=== PATIENT | female | born 1990 | race Two or more races ===

== ENCOUNTER 2025-08-08 03:47 | Emergency (ER) | payer BC ==
[~2025-08-08] VITALS: Ht 167.6 cm; Wt 88.5 kg
[2025-08-08 04:55] LABS: PLATELET COUNT (AUTO) 303 K/uL (150-450); RED BLOOD CELL COUNT(AUTO) 4.58 MIL/uL (4.0-5.2); RED CELL DISTRIBUTION WIDTH 14.3 % (11.5-15.0); WHITE BLOOD COUNT (AUTO) 9.4 K/uL (4.3-11.0)
[2025-08-08 05:00] LABS: APPEARANCE,URINE CLEAR (CLEAR); BLOOD, URINE 3+ Ery/uL (NEGATIVE); LEUKOCYTE ESTERASE ,URINE NEGATIVE (NEGATIVE); NITRITE, URINE NEGATIVE (NEGATIVE); UGLUCOSE NEGATIVE (NEGATIVE)
[2025-08-08 05:01] LABS: CALCIUM, SERUM 8.8 mg/dL (8.5-10.1); CREATININE 1.0 mg/dL (0.6-1.3); SODIUM SERUM 141.0 mmol/L (136-145); UREA NITROGEN, BLOOD 18.0 mg/dL (7-18)
[2025-08-08 05:01] LABS: PREGNANCY TEST URINE QUAL NEGATIVE (NEGATIVE)
[2025-08-08] MEDS ORDERED: KETOROLAC TROMETHAMINE 15 MG/ML VIAL ONE (05:07)
[2025-08-08 05:08] LABS: ASPARTATE AMINOTRANSFERASE 19.0 U/L (15-37); TOTAL PROTEIN, SERUM 7.6 g/dL (6.4-8.2)
[2025-08-08] MEDS: KETOROLAC TROMETHAMINE 15 MG/ML VIAL IV ONE (05:09)
[2025-08-08 05:26] LABS: ADD URINE CULTURE NO; SQUAMOUS EPITHELIAL CELL,UR 0-2 /HPF (None Seen)
[2025-08-08 05:27] LABS: INR 0.99 (0.91-1.10)
[2025-08-08 06:03] VITALS: BP 130/82; TEMP 98.6; O2SAT 96
== END 2025-08-08 06:04 | disposition home or self-care (01) ==
LOC: ER 03:57
DX: K80.20 Calculus of gallbladder without cholecystitis without obstruction (principal); R10.20 Pelvic and perineal pain unspecified side
CPT/HCPCS: 99285; 96374; 76705; 85025; 80048; 83690; 80076; 84703; 81001; 36415; 85730; 86850; 84702; J1885